=== PATIENT | female | born 1975 ===

== ENCOUNTER 2023-11-16 22:06 | Emergency (ER) | payer SELFPAY ==
[~2023-11-16] VITALS: Ht 162.6 cm; Wt 77.3 kg
[2023-11-16 22:20] LABS: COVID AG,FIA SOURCE NASAL SWAB
[2023-11-16 22:42] LABS: SARS-COV2 (COVID) ANTIGEN,FIA Negative (Negative)
[2023-11-16 22:43] LABS: INFLUENZA TYPE A NEGATIVE FOR TYPE A (NEGATIVE); INFLUENZA TYPE B NEGATIVE FOR TYPE B (NEGATIVE)
[2023-11-16] MEDS ORDERED: ONDANSETRON HCL 4 MG TABLET PO ONE (23:30)
[2023-11-16] MEDS ORDERED: ACETAMINOPHEN 500 MG TABLET PO ONE (23:30)
[2023-11-17] MEDS ORDERED: SODIUM CHLORIDE 0.9% 2,300 ML IV ONE
[2023-11-17] MEDS ORDERED: CefTRIAXone 1 GM/DEXTROSE 50 ML IV ONE
[2023-11-17] MEDS ORDERED: 0.9% SODIUM CHLORIDE 10 ML SYRINGE IVP PRN
[2023-11-17 01:54] LABS: BASOPHILS % (AUTO) 0.3 % (0.0-2.0); EOSINOPHILS % (AUTO) 0.1 % (1.0-6.0); HEMATOCRIT 42.4 % (36-46); HEMOGLOBIN 14.3 g/dL (12.0-16.0); LYMPHOCYTES # (AUTO) 1.6 K/uL (1.0-4.8); LYMPHOCYTES % (AUTO) 18.4 % (22.0-44.0); MEAN CORPUSCULAR HEMOGLOBIN 29.6 pg (26.0-34.0); MEAN CORPUSCULAR HGB CONC 33.8 G/dL (31.0-37.0); MEAN CORPUSCULAR VOLUME 88 fL (80-100); MONOCYTES # (AUTO) 0.7 K/uL (0.1-1.0); MONOCYTES % (AUTO) 8.2 % (2.0-9.0); NEUTROPHILS # (AUTO) 6.3 K/uL (1.8-7.7); PLATELET COUNT (AUTO) 133 K/uL (150-450); RED BLOOD CELL COUNT(AUTO) 4.85 MIL/uL (4.00-5.20); RED CELL DISTRIBUTION WIDTH 13.6 % (11.5-14.5); WHITE BLOOD COUNT (AUTO) 8.7 K/uL (4.5-11.0)
[2023-11-17 01:59] LABS: ANION GAP 9 mmol/L (8-16); CALCIUM, TOTAL 8.4 mg/dL (8.8-10.5); CARBON DIOXIDE 26 mmol/L (22-29); CHLORIDE 96 mmol/L (98-107); CREATININE 0.64 mg/dL (0.60-1.30); GLOMERULAR FILTR. RATE CALC > 60 mL/min (>60); GLUCOSE,RANDOM 115 mg/dL (70-110); POTASSIUM 3.8 mmol/L (3.5-5.1); SODIUM SERUM 131 mmol/L (136-145); UREA NITROGEN, BLOOD 9 mg/dL (7-18)
[2023-11-17 02:05] LABS: ALANINE AMINOTRANSFERASE 42 U/L (12-78); ALBUMIN 3.6 g/dL (3.4-5.0); ALKALINE PHOSPHATASE 95 U/L (46-116); ASPARTATE AMINOTRANSFERASE 41 U/L (15-37); BILIRUBIN,TOTAL 0.6 mg/dL (0.1-1.0); TOTAL PROTEIN, SERUM 7.9 g/dL (6.4-8.2)
[2023-11-17 02:07] LABS: TROPONIN I-HIGH SENSITIVITY 10 ng/L (<51)
[2023-11-17 02:14] LABS: B-TYPE NATRIURETIC PEPTIDE 30 pg/mL (0-100)
[2023-11-17 02:15] LABS: APPEARANCE,URINE CLEAR (CLEAR); BILIRUBIN,URINE NEGATIVE (NEGATIVE); COLOR,URINE LIGHT YELLOW (YELLOW); GLUCOSE, URINE (UA) NEGATIVE (NEGATIVE); KETONES,URINE NEGATIVE (NEGATIVE); LEUKOCYTE ESTERASE ,URINE NEGATIVE (NEGATIVE); NITRATE,URINE NEGATIVE (NEGATIVE); OCCULT BLOOD,URINE NEGATIVE (NEGATIVE); PROTEIN,URINE NEGATIVE (NEGATIVE); SPECIFIC GRAVITIY, URINE 1.012 (1.003-1.030); UROBILINOGEN,URINE <=1.0 mg/dL (<=1.0)
[2023-11-17] MEDS ORDERED: AZIT250T9 PO (02:27)
[2023-11-17 02:30] VITALS: BP 91/56; PULSE 77; RESP 18; TEMP 98.9
[2023-11-17 03:54] LABS: LACTIC ACID 0.7 mmol/L (0.4-2.0)
== END 2023-11-17 02:54 | disposition home or self-care (01) ==
LOC: EMS 22:08
DX: J20.8 Acute bronchitis due to other specified organisms (principal); F17.210 Nicotine dependence, cigarettes, uncomplicated; Z20.822 Contact with and (suspected) exposure to COVID-19
CPT/HCPCS: 99285; 96365; 71045; 87426; 80053; 81003; 83605; 83880; 84484; 85025; 87040; 87804; 36415; 93005; 84145; Q0162; J0696; J7030

== ENCOUNTER 2025-08-07 20:51 | Emergency (ER) | payer SELFPAY ==
[~2025-08-07] VITALS: Ht 160 cm; Wt 83.2 kg
[2025-08-07 20:56] VITALS: BP 120/72; PULSE 75; RESP 17; TEMP 97.9; O2SAT 98
[2025-08-07] MEDS ORDERED: CIPOTIC AU (23:08)
[2025-08-08] MEDS ORDERED: CORTSOL AU (22:19)
== END 2025-08-08 00:13 | disposition home or self-care (01) ==
LOC: EMS 20:51
DX: H60.91 Unspecified otitis externa, right ear (principal); F17.210 Nicotine dependence, cigarettes, uncomplicated; Z79.899 Other long term (current) drug therapy
CPT/HCPCS: 99282; Z7502